=== PATIENT | male | born 1945 | race Caucasian/White ===

== ENCOUNTER 2019-12-20 18:15 | Inpatient (IN) ==
[2019-12-20 18:48] LABS: Hematocrit 41.7 % (37.5-50.1); Hemoglobin 13.8 g/dL (12.9-16.9); INR 1.1; Mean Corpuscular HGB Conc 33.1 g/dL (31.6-35.5); Mean Corpuscular Hemoglobin 31.7 pg (28.0-33.3); Mean Corpuscular Volume 95.6 fL (83.0-100.0); Mean Platelet Volume 11.6 fL (9.4-12.4); Platelet Count 166 K/mcL (140-400); Prothrombin Time 12.6 Seconds (9.4-12.1); Red Blood Count 4.36 M/mcL (4.19-5.50); Red Cell Distribution Width 12.4 % (11.5-14.5)
[2019-12-20 18:50] LABS: Activated Partial Thrombo Time 31.9 Seconds (26.0-36.0)
[2019-12-20 18:56] LABS: BUN/Creatinine Ratio 18 (6-26); Blood Urea Nitrogen 18 mg/dL (8-23); Calcium 8.7 mg/dL (8.6-10.3); Carbon Dioxide 24 mEq/L (23-29); Chloride 108 mEq/L (98-107); Glucose 124 mg/dL (70-105); Osmolality,Calculated 293 (280-300); Potassium 3.8 mEq/L (3.5-5.1); Sodium 140 mEq/L (136-145); eGFR For African Americans > 60 (> 60); eGFR For Non-African Americans > 60 (> 60)
[2019-12-20 18:58] LABS: Troponin I < 0.03 ng/mL (< 0.04)
[2019-12-20] MEDS ORDERED: Isovue-370 500 ML BOTTLE IVP ONE (19:18)
[2019-12-20] MEDS ORDERED: Aspirin 325 MG TABLET PO ONE (19:18)
[2019-12-20] MEDS ORDERED: Albuterol 2.5 MG/3 ML NEBULIZER IH PRN (20:57)
[2019-12-20] MEDS ORDERED: Fluticasone Propionate Nasal 50 MCG/SPRAY BOTTLE NS PRN (20:57)
[2019-12-21] MEDS: Budesonide/Formoterol 160/4.5 1 PUFF INH IH SCH ×3 (00:12→20:11)
[2019-12-21 07:12] LABS: Hematocrit 41.7 % (37.5-50.1); Hemoglobin 13.6 g/dL (12.9-16.9); Mean Corpuscular HGB Conc 32.6 g/dL (31.6-35.5); Mean Corpuscular Hemoglobin 30.8 pg (28.0-33.3); Mean Corpuscular Volume 94.3 fL (83.0-100.0); Mean Platelet Volume 12.6 fL (9.4-12.4); Platelet Count 176 K/mcL (140-400); Red Blood Count 4.42 M/mcL (4.19-5.50); Red Cell Distribution Width 12.5 % (11.5-14.5); White Blood Count 4.8 K/mcL (4.3-11.1)
[2019-12-21 07:43] LABS: Alanine Aminotransferase 18 Units/L (7-52); Albumin 3.8 g/dL (3.5-5.7); Albumin/Globulin Ratio 1.6 (1.1-2.2); Alkaline Phosphatase 53 Units/L (34-104); Aspartate Amino Transferase 19 Units/L (13-39); BUN/Creatinine Ratio 16 (6-26); Bilirubin,Total 1.3 mg/dL (0.3-1.0); Blood Urea Nitrogen 15 mg/dL (8-23); Carbon Dioxide 24 mEq/L (23-29); Chloride 107 mEq/L (98-107); Chol/HDL Ratio 3.4 (0-4.9); Cholesterol 152 mg/dL (< 200); Globulin 2.4 g/dL (2.4-3.5); Glucose 99 mg/dL (70-105); HDL Cholesterol 45 mg/dL (40-59); LDL Cholesterol,Calculated 95 mg/dL (< 100); Osmolality,Calculated 291 (280-300); Potassium 3.4 mEq/L (3.5-5.1); Sodium 140 mEq/L (136-145); Total Protein 6.2 g/dL (6.4-8.9); Triglycerides 62 mg/dL (< 150); Troponin I < 0.03 ng/mL (< 0.04); eGFR For African Americans > 60 (> 60); eGFR For Non-African Americans > 60 (> 60)
[2019-12-21 08:10] LABS: Estimated Average Glucose 143 mg/dl
[2019-12-21] MEDS: Aspirin 81 MG TAB.CHEW PO SCH (08:21)
[2019-12-21] MEDS: amLODIPine 5 MG TABLET PO SCH (08:21)
[2019-12-21] MEDS: lisinopriL 20 MG TABLET PO SCH (08:21)
[2019-12-21] MEDS ORDERED: Perflutren Lipid Microsphere 1.3 ML in 0.9 % Sodium Chloride 8.7 ML IVP ONE (09:52)
[2019-12-21] MEDS ORDERED: D5% in Water 1,000 ML IVC PRN (16:15)
[2019-12-21] MEDS ORDERED: Dextrose Gel 15 GM/37.5 ML TUBE PO PRN ×2 (16:15)
[2019-12-21] MEDS ORDERED: *HR* Dextrose 50 % in Water (Vial) 50 ML VIAL IVP PRN (16:15)
[2019-12-21] MEDS: Insulin LISPRO 300 UNITS/3 ML VIAL SQ SCH (16:40)
[2019-12-21] MEDS: Apixaban 5 MG TABLET PO SCH (20:28)
[2019-12-22 06:42] LABS: Hematocrit 42.2 % (37.5-50.1); Mean Corpuscular HGB Conc 33.2 g/dL (31.6-35.5); Mean Corpuscular Hemoglobin 31.7 pg (28.0-33.3); Mean Corpuscular Volume 95.5 fL (83.0-100.0); Mean Platelet Volume 11.8 fL (9.4-12.4); Platelet Count 179 K/mcL (140-400); Red Blood Count 4.42 M/mcL (4.19-5.50); Red Cell Distribution Width 12.3 % (11.5-14.5); White Blood Count 5.2 K/mcL (4.3-11.1)
[2019-12-22 07:02] LABS: BUN/Creatinine Ratio 14 (6-26); Blood Urea Nitrogen 14 mg/dL (8-23); Calcium 9.2 mg/dL (8.6-10.3); Carbon Dioxide 25 mEq/L (23-29); Chloride 107 mEq/L (98-107); Glucose 109 mg/dL (70-105); Osmolality,Calculated 291 (280-300); Potassium 3.8 mEq/L (3.5-5.1); Sodium 140 mEq/L (136-145); eGFR For African Americans > 60 (> 60); eGFR For Non-African Americans > 60 (> 60)
[2019-12-22] MEDS: Insulin LISPRO 300 UNITS/3 ML VIAL SQ SCH ×3 (07:25→16:24)
[2019-12-22] MEDS: Budesonide/Formoterol 160/4.5 1 PUFF INH IH SCH ×2 (07:50→20:06)
[2019-12-22] MEDS: amLODIPine 5 MG TABLET PO SCH (08:09)
[2019-12-22] MEDS: Apixaban 5 MG TABLET PO SCH ×2 (08:09→19:59)
[2019-12-22] MEDS: lisinopriL 20 MG TABLET PO SCH (08:09)
[2019-12-22] MEDS: Aspirin 81 MG TAB.CHEW PO SCH (08:09)
[2019-12-23 02:22] LABS: Hematocrit 43.8 % (37.5-50.1); Hemoglobin 14.2 g/dL (12.9-16.9); Mean Corpuscular HGB Conc 32.4 g/dL (31.6-35.5); Mean Corpuscular Hemoglobin 30.7 pg (28.0-33.3); Mean Corpuscular Volume 94.8 fL (83.0-100.0); Mean Platelet Volume 12.5 fL (9.4-12.4); Platelet Count 178 K/mcL (140-400); Red Blood Count 4.62 M/mcL (4.19-5.50); Red Cell Distribution Width 12.5 % (11.5-14.5); White Blood Count 5.5 K/mcL (4.3-11.1)
[2019-12-23] MEDS: Insulin LISPRO 300 UNITS/3 ML VIAL SQ SCH ×3 (07:23→15:29)
[2019-12-23] MEDS ORDERED: Lidocaine Viscous Oral Soln 15 ML SOLUTION MM PRN (08:02)
[2019-12-23] MEDS: Aspirin 81 MG TAB.CHEW PO SCH (08:03)
[2019-12-23] MEDS ORDERED: 0.9 % Sodium Chloride 500 ML IVC ONE (08:03)
[2019-12-23] MEDS: lisinopriL 20 MG TABLET PO SCH (08:03)
[2019-12-23] MEDS: Apixaban 5 MG TABLET PO SCH (08:03)
[2019-12-23] MEDS: amLODIPine 5 MG TABLET PO SCH (08:03)
[2019-12-23] MEDS: *HR* Midazolam HCl 5 MG/5 ML VIAL IVP PRN ×4 (08:35→08:50)
[2019-12-23] MEDS: *HR* FentaNYL (PF) 100 MCG/2 ML VIAL IVP PRN ×4 (08:35→08:50)
[2019-12-23] MEDS: Budesonide/Formoterol 160/4.5 1 PUFF INH IH SCH (10:32)
[2019-12-23 15:19] VITALS: BP 125/79
== END 2019-12-23 16:50 | disposition home or self-care (01) | DRG 65 ==
LOC: 3BNU 18:15 → EMEROOARM 18:15 → 3BNU 21:12
PROVIDERS: ADMIT Student in an Organized Health Care Education/Training Program; ATTEND Student in an Organized Health Care Education/Training Program